=== PATIENT | female | born 1980 | race Asian ===

== ENCOUNTER 2016-08-29 07:19 | Emergency (ER) | payer OTHER ==
[~2016-08-29] VITALS: Ht 154.9 cm; Wt 83.0 kg
[2016-08-29 07:29] VITALS: TEMP 98.5
[2016-08-29] MEDS ORDERED: LISITAB PO (07:29)
[2016-08-29] MEDS ORDERED: TOPAMAX200 MG OR (07:29)
[2016-08-29] MEDS ORDERED: HYDR25TA15 PO (07:30)
[2016-08-29] MEDS ORDERED: LOVASTATIN10 MG OR (07:31)
[2016-08-29 08:24] VITALS: BP 138/84
== END 2016-08-29 08:25 | disposition home or self-care (01) ==
LOC: ED 07:19
DX: B00.9 Herpesviral infection, unspecified (principal)
CPT/HCPCS: 99283

== ENCOUNTER 2018-01-22 15:15 | Emergency (ER) | payer OTHER ==
[~2018-01-22] VITALS: Ht 152.4 cm; Wt 85.7 kg
[~2018-01-22 15:15] MED LIST: HYDR25TA15 PO; LISITAB PO; LOVASTATIN10 MG OR; TOPAMAX200 MG OR
[2018-01-22 17:03] LABS: PLATELET COUNT 394 K/uL (152-353)
[2018-01-22 17:10] LABS: POTASSIUM 3.4 mmol/L (3.6-5.2)
[2018-01-22 20:41] VITALS: BP 140/97; TEMP 98.7
== END 2018-01-22 20:44 | disposition home or self-care (01) ==
LOC: ED 15:15
PROVIDERS: Specialist
DX: R10.32 Left lower quadrant pain (principal)
CPT/HCPCS: 36415; 80048; 81000; 81025; 84702; 85027; 96360; 96375; 99284; J1885

== ENCOUNTER 2019-02-10 12:56 | Emergency (ER) | payer OTHER ==
[~2019-02-10] VITALS: Ht 152.4 cm; Wt 85.7 kg
[2019-02-10 13:03] VITALS: TEMP 98.41
[2019-02-10 16:06] VITALS: BP 130/74
== END 2019-02-10 16:06 | disposition home or self-care (01) ==
LOC: ED 12:56
DX: R10.9 Unspecified abdominal pain (principal)
CPT/HCPCS: 81000; 99283

== ENCOUNTER 2019-05-05 10:22 | Outpatient (CLI) | payer OTHER ==
[2019-05-05 10:40] LABS: PLATELET COUNT 403 K/uL (152-353)
[2019-05-05 11:18] LABS: POTASSIUM 3.3 mmol/L (3.6-5.2)
== END 2019-05-05 22:54 | disposition home or self-care (01) ==
LOC: LABW 10:22
PROVIDERS: Physician Assistant
DX: I10 Essential (primary) hypertension (principal); R42 Dizziness and giddiness
CPT/HCPCS: 36415; 80053; 84443; 85027

== ENCOUNTER 2020-02-10 15:16 | Emergency (ER) | payer OTHER ==
[~2020-02-10] VITALS: Ht 152.4 cm; Wt 83.0 kg
[2020-02-10 17:12] VITALS: BP 139/67; TEMP 98.7
== END 2020-02-10 17:18 | disposition home or self-care (01) ==
LOC: ED 15:16
DX: S29.012A Strain of muscle and tendon of back wall of thorax, initial encounter (principal); N39.0 Urinary tract infection, site not specified
CPT/HCPCS: 81000; 87077; 87086; 87088; 87186; 99283

== ENCOUNTER 2021-01-30 08:00 | Day surgery (SDC) | payer OTHER ==
[2021-01-27 13:39] LABS: PLATELET COUNT 419 K/uL (152-353)
[2021-01-27 13:51] LABS: POTASSIUM 3.4 mmol/L (3.6-5.2)
== END 2021-01-30 10:10 | disposition home or self-care (01) ==
LOC: OR 08:00
PROVIDERS: ATTEND Student in an Organized Health Care Education/Training Program
PROC: 0DB48ZZ Excision of Esophagogastric Junction, Via Natural or Artificial Opening Endoscopic (ICD-10-PCS; principal; 2021-01-30)
PROC: 0DB68ZZ Excision of Stomach, Via Natural or Artificial Opening Endoscopic (ICD-10-PCS; 2021-01-30)
PROC: 0DB38ZZ Excision of Lower Esophagus, Via Natural or Artificial Opening Endoscopic (ICD-10-PCS; 2021-01-30)
PROC: 0D738ZZ Dilation of Lower Esophagus, Via Natural or Artificial Opening Endoscopic (ICD-10-PCS; 2021-01-30)
DX: K29.50 Unspecified chronic gastritis without bleeding (principal); B96.81 Helicobacter pylori [H. pylori] as the cause of diseases classified elsewhere; K44.9 Diaphragmatic hernia without obstruction or gangrene; K21.00 Gastro-esophageal reflux disease with esophagitis, without bleeding; K52.89 Other specified noninfective gastroenteritis and colitis; K22.2 Esophageal obstruction; R13.19 Other dysphagia; R10.84 Generalized abdominal pain; Z20.828 Contact with and (suspected) exposure to other viral communicable diseases
CPT/HCPCS: 80053; 85027; 87635; 94640; 94664; 94760; J1100; J2001; J2405; J2704; U0003

== ENCOUNTER 2021-07-31 08:48 | Outpatient (CLI) | payer OTHER | END 2021-07-31 18:50 | disposition home or self-care (01) | LOC: MAMMO 08:48 | PROVIDERS: ATTEND Nurse Practitioner Family | DX: Z12.31 Encounter for screening mammogram for malignant neoplasm of breast (principal) ==

== ENCOUNTER 2022-08-03 08:58 | Outpatient (CLI) | payer OTHER | END 2022-08-03 20:20 | disposition home or self-care (01) | LOC: MAMMO 08:58 | PROVIDERS: ATTEND Nurse Practitioner Family | DX: Z12.31 Encounter for screening mammogram for malignant neoplasm of breast (principal) ==

== ENCOUNTER 2022-09-01 13:57 | Outpatient (CLI) | payer OTHER | END 2022-09-01 20:38 | disposition home or self-care (01) | LOC: MAMMO 13:57 | PROVIDERS: ATTEND Nurse Practitioner Family | DX: R92.8 Other abnormal and inconclusive findings on diagnostic imaging of breast (principal) | CPT/HCPCS: G0279 ==

== ENCOUNTER 2022-12-14 13:14 | Outpatient (CLI) | payer OTHER | END 2022-12-14 19:00 | disposition home or self-care (01) | LOC: RAD 13:14 | PROVIDERS: ATTEND Nurse Practitioner Family | DX: M25.512 Pain in left shoulder (principal); M54.2 Cervicalgia ==

== ENCOUNTER 2023-02-06 13:34 | Emergency (ER) | payer OTHER ==
[~2023-02-06] VITALS: Ht 154.9 cm; Wt 86.2 kg
[2023-02-06 13:36] VITALS: BP 145/82; TEMP 98.7
[2023-02-06 14:31] LABS: PLATELET COUNT 422 K/uL (152-353)
[2023-02-06 14:39] LABS: POTASSIUM 3.1 mmol/L (3.6-5.2)
== END 2023-02-06 15:57 | disposition home or self-care (01) ==
LOC: ED 13:34
PROVIDERS: Family Medicine
DX: E87.6 Hypokalemia (principal); I10 Essential (primary) hypertension; E78.5 Hyperlipidemia, unspecified; G43.909 Migraine, unspecified, not intractable, without status migrainosus
CPT/HCPCS: 36415; 80053; 85027; 93005; 96372; 99283; J1100

== ENCOUNTER 2023-06-10 09:36 | Outpatient (CLI) | payer BC | END 2023-06-10 19:02 | disposition home or self-care (01) | LOC: RAD 09:36 | PROVIDERS: ATTEND Nurse Practitioner Family | DX: M25.552 Pain in left hip (principal); M54.59 Other low back pain ==